=== PATIENT | female | born 1990 | race African-American/Black ===

== ENCOUNTER 2024-09-26 10:33 | Emergency (ER) | payer OTHER ==
[2024-09-26 10:46] VITALS: TEMP 98.7; BMI 32.8
[2024-09-26] MEDS ORDERED: ACETAMINOPHEN 500 MG TABLET (FP) ONE (12:45)
[2024-09-26] MEDS: ACETAMINOPHEN 500 MG TABLET (FP) PO ONE (12:48)
[2024-09-26 14:32] VITALS: BP 145/85; PULSE 84; RESP 18
== END 2024-09-26 14:33 | disposition home or self-care (01) ==
LOC: JER 10:33
DX: T59.811A Toxic effect of smoke, accidental (unintentional), initial encounter (principal); R06.02 Shortness of breath; J02.9 Acute pharyngitis, unspecified; R51.9 Headache, unspecified; R05.9 Cough, unspecified
CPT/HCPCS: 71046-TC-FY; 99283-25